=== PATIENT | female | born 2000 | race Caucasian/White ===

== ENCOUNTER 2020-02-20 18:05 | Emergency (ER) | payer OTHER ==
[2020-02-20] MEDS ORDERED: Sodium Chloride 0.9% 10 ML Syringe FLUSH PRN (18:21)
[2020-02-20] MEDS ORDERED: Sodium Chloride 0.9% 1,000 ML IV ONE ×2 (18:22→21:55)
[2020-02-20] MEDS ORDERED: Ondansetron 4 MG/2 ML SDV IVPUSH ONE ×2 (18:22→23:05)
--- NOTE | 2020-02-20 18:30 | EDM.PDOC ---
ED HPI GENERAL MEDICAL PROBLEM - General Chief Complaint: Respiratory Problem Stated Complaint: fever, nausea, sore throat Time Seen by Provider: 02/20/20 18:15 Source of Information: Reports: Patient - History of Present Illness INITIAL COMMENTS - FREE TEXT/NARRATIVE: Patient comes into the emergency department with complaints of nausea, vomiting, flank pain- with mild suprapubic, sore throat-since vomiting all day today, fever, body aches, and chills. Patient states her symptoms started approximately 5 to 7 days ago she was seen 4 days ago for COVID testing which came back negative. She states she has been progressively getting worse. Today she states she has felt her worse since the beginning of all of the symptoms. She states that she has been vomiting since midnight and cannot keep any fluid or solids down. Patient has notice difficulty urinating and decrease in urination but no hesitancy or burning. She also states that she goes from intermittent chills to hot flashes. She also states that her fever is been averaging 100-1 01. She has been taking Tylenol to help reduce the fever. She also has been taking Mucinex to help with little relief. She denies of any known active exposure to COVID-19. She States after taking Tylenol the fever is reduced for short period of time and her body aches to go away however they increase approximately 2 hours after taking any medication. Patient states she is in a stable relationship and has not possibility of at this time. Onset: Sudden Quality: Reports: Other Severity: Mild Improves with: Reports: None Worsens with: Reports: None Context: Reports: Other Associated Symptoms: Reports: No Other Symptoms Treatments PIGMENT PUMPER: Reports: Acetaminophen, Other (see below) (musinex) Throat Pain Score (Numeric/FACES): 3 - Related Data Allergies Allergy/AdvReac Type Severity Reaction Status Date / Time No Known Allergies Allergy Verified 02/20/20 18:12 Home Meds: Home Meds Albuterol Sulfate [Albuterol Sulfate Hfa] 8.5 gm IH ASDIRECTED PRN 02/20/20 [History] Ciprofloxacin [Ciprofloxacin HCl] 500 mg PO BID 6 Days #12 tab 02/20/20 [Rx] Past Medical History Respiratory History: Reports: Asthma Social & Family History - Tobacco Use Smoking Status *Q: Never Smoker ED ROS GENERAL - Review of Systems Review Of Systems: See Below Constitutional: Reports: Fever, Chills, Malaise, Fatigue, Decreased Appetite HEENT: Reports: Throat Pain Respiratory: Reports: Cough Cardiovascular: Reports: Dyspnea on Exertion Endocrine: Reports: No Symptoms GI/Abdominal: Reports: Nausea Musculoskeletal: Reports: No Symptoms Skin: Reports: No Symptoms Neurological: Reports: No Symptoms Psychiatric: Reports: No Symptoms Hematologic/Lymphatic: Reports: No Symptoms Immunologic: Reports: No Symptoms ED EXAM, GENERAL - Physical Exam Exam: See Below Exam Limited By: No Limitations General Appearance: Alert, WD/WN, No Apparent Distress Eye Exam: Bilateral Eye: EOMI, PERRL Ears: Normal External Exam, Normal Canal, Hearing Grossly Normal, Normal TMs Ear Exam: Bilateral Ear: Auricle Normal, Canal Normal, TM normal Nose: Normal Inspection, Normal Mucosa, No Blood Throat/Mouth: Normal Teeth, Normal Gums, Normal Voice. No: Inflammation (Erythema noted tonsil 3+ ) Head: Atraumatic, Normocephalic Neck: Normal Inspection, Supple, Non-Tender, Full Range of Motion Respiratory/Chest: No Respiratory Distress, Lungs Clear, Normal Breath Sounds, No Accessory Muscle Use, Chest Non-Tender Cardiovascular: Normal Peripheral Pulses, Regular Rate, Rhythm, No Edema GI/Abdominal: Normal Bowel Sounds, Soft, Non-Tender, No Organomegaly, No Distention, No Abnormal Bruit, No Mass Back Exam: Normal Inspection, Full Range of Motion Extremities: Normal Inspection, Normal Range of Motion, Non-Tender, No Pedal Edema, Normal Capillary Refill Neurological: Alert, Oriented, Normal Gait Psychiatric: Normal Affect, Normal Mood Skin Exam: Warm, Dry, Intact, Normal Color Course - Vital Signs Last Recorded V/S: Last Vital Signs Temp 37.2 C 02/20/20 23:03 Pulse 86 02/20/20 23:03 Resp 16 02/20/20 23:03 BP 138/75 02/20/20 23:03 Pulse Ox 97 02/20/20 23:03 - Orders/Labs/Meds Orders: Active Orders 24 hr Category Date Time Status Abdomen Pelvis wo Cont [CT] Stat Exams 02/20/20 19:54 Taken CULTURE BLOOD [BC] Stat Lab 02/20/20 18:54 Results CULTURE BLOOD [BC] Stat Lab 02/20/20 19:27 Received CULTURE STREP A CONFIRMATION [RM] Stat Lab 02/20/20 18:28 Results STREP SCRN A RAPID W CULT CONF [RM] Stat Lab 02/20/20 18:28 Results Ketorolac [Toradol] Med 02/20/20 23:05 Once 15 mg IVPUSH ONETIME ONE Ondansetron [Zofran] Med 02/20/20 23:05 Once 4 mg IVPUSH ONETIME ONE Sodium Chloride 0.9% [Saline Flush] Med 02/20/20 18:21 Active 10 ml FLUSH ASDIRECTED PRN Blood Culture x2 Reflex Set [OM.PC] Stat Oth 02/20/20 19:14 Ordered Peripheral IV Insertion Adult [OM.PC] Stat Oth 02/20/20 18:20 Ordered Medication Orders Sodium Chloride (Saline Flush) 10 ml FLUSH ASDIRECTED PRN PRN Reason: Keep Vein Open Last Admin: 02/20/20 19:16 Dose: 10 ml Documented by: WEI Labs: Laboratory Tests 02/20/20 02/20/20 02/20/20 Range/Units 18:28 18:54 18:54 WBC 22.4 H* (4.0-10.0) x10^3/uL RBC 4.67 (4.00-5.50) x10^6/uL Hgb 14.4 (12.0-16.0) g/dL Hct 40.7 (33.0-47.0) % MCV 87.2 (78.0-93.0) fL MCH 30.8 (26.0-32.0) pg MCHC 35.4 (32.0-36.0) g/dL RDW Coeff of Jaqui 11.7 (10.0-15.0) % Plt Count 228 (130-400) x10^3/uL Add Manual Diff Yes Neutrophils % (Manual) 85 H (50-80) % Band Neutrophils % 2 (0-6) % Lymphocytes % (Manual) 5 L (25-50) % Monocytes % (Manual) 8 (2-11) % Hypersegmented Neuts Occasional H Platelet Estimate Adequate Sodium 135 L (136-145) mmol/L Potassium 3.7 (3.5-5.1) mmol/L Chloride 99 (98-107) mmol/L Carbon Dioxide 24 (21-32) mmol/L Anion Gap 15.7 (10-20) mmol/L BUN 11 (7-18) mg/dL Creatinine 0.9 (0.55-1.02) mg/dL Est Cr Clr Drug Dosing TNP Estimated GFR (MDRD) > 60 Glucose 119 H (74-106) mg/dL Lactic Acid (0.4-2.0) mmol/L Calcium 9.0 (8.5-10.1) mg/dL Corrected Calcium 9.00 (8.5-10.1) mg/dL Total Bilirubin 0.9 (0.2-1.0) mg/dL AST 19 (15-37) U/L ALT 24 (14-59) U/L Alkaline Phosphatase 49 (46-116) U/L Total Protein 8.3 H (6.4-8.2) g/dL Albumin 4.0 (3.4-5.0) g/dL Globulin 4.3 Albumin/Globulin Ratio 0.93 Urine Color (YELLOW) Urine Appearance (CLEAR) Urine pH (5.0-8.0) Ur Specific [place] Urine Protein (NEGATIVE) mg/dL Urine Glucose (UA) (NEGATIVE) mg/dL Urine Ketones (NEGATIVE) mg/dL Urine Occult Blood (NEGATIVE) Urine Nitrite (NEGATIVE) Urine Bilirubin (NEGATIVE) Urine Urobilinogen (0.2) EU/dL Ur Leukocyte Esterase (NEGATIVE) Urine RBC (NOT SEEN) /HPF Urine WBC (NOT SEEN) /HPF Ur Squamous Epith Cells (NEGATIVE) /HPF Urine Bacteria (NEGATIVE) /HPF Urine Mucus (NEGATIVE) /LPF SARS CoV-2 RNA Rapid SUHAIL Negative (NEGATIVE) 02/20/20 02/20/20 02/20/20 Range/Units 18:54 20:41 21:24 WBC 21.7 H* (4.0-10.0) x10^3/uL RBC 4.66 (4.00-5.50) x10^6/uL Hgb 14.3 (12.0-16.0) g/dL Hct 41.1 (33.0-47.0) % MCV 88.2 (78.0-93.0) fL MCH 30.7 (26.0-32.0) pg MCHC 34.8 (32.0-36.0) g/dL RDW Coeff of Jaqui 11.9 (10.0-15.0) % Plt Count 222 (130-400) x10^3/uL Add Manual Diff Yes Neutrophils % (Manual) 85 H (50-80) % Band Neutrophils % 3 (0-6) % Lymphocytes % (Manual) 5 L (25-50) % Monocytes % (Manual) 7 (2-11) % Hypersegmented Neuts Occasional H Platelet Estimate Adequate Sodium (136-145) mmol/L Potassium (3.5-5.1) mmol/L Chloride (98-107) mmol/L Carbon Dioxide (21-32) mmol/L Anion Gap (10-20) mmol/L BUN (7-18) mg/dL Creatinine (0.55-1.02) mg/dL Est Cr Clr Drug Dosing Estimated GFR (MDRD) Glucose (74-106) mg/dL Lactic Acid 1.4 (0.4-2.0) mmol/L Calcium (8.5-10.1) mg/dL Corrected Calcium (8.5-10.1) mg/dL Total Bilirubin (0.2-1.0) mg/dL AST (15-37) U/L ALT (14-59) U/L Alkaline Phosphatase (46-116) U/L Total Protein (6.4-8.2) g/dL Albumin (3.4-5.0) g/dL Globulin Albumin/Globulin Ratio Urine Color Yellow (YELLOW) Urine Appearance Clear (CLEAR) Urine pH 7.0 (5.0-8.0) Ur Specific [place] 1.015 Urine Protein 30 H (NEGATIVE) mg/dL Urine Glucose (UA) Negative (NEGATIVE) mg/dL Urine Ketones 80 H (NEGATIVE) mg/dL Urine Occult Blood Negative (NEGATIVE) Urine Nitrite Negative (NEGATIVE) Urine Bilirubin Negative (NEGATIVE) Urine Urobilinogen 1.0 (0.2) EU/dL Ur Leukocyte Esterase Negative (NEGATIVE) Urine RBC 0-5 (NOT SEEN) /HPF Urine WBC Not seen (NOT SEEN) /HPF Ur Squamous Epith Cells Rare (NEGATIVE) /HPF Urine Bacteria Rare (NEGATIVE) /HPF Urine Mucus Occasional H (NEGATIVE) /LPF SARS CoV-2 RNA Rapid SUHAIL (NEGATIVE) Meds: Medications Generic Name Dose Route Start Last Admin Trade Name Freq PRN Reason Stop Dose Admin Sodium Chloride 10 ml 02/20/20 18:21 02/20/20 19:16 Saline Flush FLUSH 10 ml ASDIRECTED PRN Administration Keep Vein Open Discontinued Medications Generic Name Dose Route Start Last Admin Trade Name Freq PRN Reason Stop Dose Admin Ceftriaxone Sodium 1 gm 02/20/20 19:15 02/20/20 19:30 Rocephin IVPUSH 02/20/20 19:16 1 gm ONETIME ONE Administration Ciprofloxacin 1 packet 02/20/20 21:59 02/20/20 22:13 Take Home: Ciprofloxacin 500 Mg, 2 Tab Pack PO 02/20/20 22:00 1 packet ONETIME ONE Administration Sodium Chloride 1,000 mls @ 1,000 mls/hr 02/20/20 18:22 02/20/20 19:11 Normal Saline IV 02/20/20 19:21 1,000 mls/hr ONETIME ONE Administration Sodium Chloride 1,000 mls @ 1,000 mls/hr 02/20/20 21:55 02/20/20 22:00 Normal Saline IV 02/20/20 22:54 1,000 mls/hr ONETIME ONE Administration Ketorolac Tromethamine 15 mg 02/20/20 21:50 02/20/20 22:04 Toradol IVPUSH 02/20/20 21:51 15 mg ONETIME ONE Administration Ondansetron HCl 4 mg 02/20/20 18:22 02/20/20 19:12 Zofran IVPUSH 02/20/20 18:23 4 mg ONETIME ONE Administration Ondansetron HCl 2 packet 02/20/20 21:59 02/20/20 22:13 Take Home: Ondansetron Odt 4 Mg, 2 Tab Pack PO 02/20/20 22:00 2 packet ONETIME ONE Administration - Re-Assessments/Exams Free Text/Narrative Re-Assessment/Exam: 02/20/20 22:09 pt states she feels much better and is not willing to be admitted. She feels she would rest better at home. Discussed the risk and benefits. She will assume all risk and states she will return or call 911 if symptoms progress or return. Departure - Departure Time of Disposition: 23:20 Disposition: Home, Self-Care 01 Condition: Good Clinical Impression: Pyelonephritis - Discharge Information *PRESCRIPTION DRUG MONITORING PROGRAM REVIEWED*: Not Applicable *COPY OF PRESCRIPTION DRUG MONITORING REPORT IN PATIENT FELIPE: Not Applicable Prescriptions: Ciprofloxacin [Ciprofloxacin HCl] 500 mg PO BID 6 Days #12 tab Instructions: Ondansetron tablets, Ketorolac injection, Pyelonephritis, Adult, [id number], Ciprofloxacin tablets Referrals: PCP,Felixobtain [Primary Care Provider] - Forms: ED Department Discharge Additional Instructions: 1. rest 2. increase your water intake 3. Take all antibiotics as prescribed even if feeling better 4. Take a probiotic while on antibiotics to help promote healthy GI motility 5. Activity and diet as tolerated 6. Can use Ibuprofen and tylenol for any fever or discomfort 7. Follow up with your PCP or return if symptoms progress or worsen 8. Education provided to you regarding your illness, probiotics, antibiotic prescribed 9. Call with any questions or concerns Sepsis Event Note (ED) - Evaluation Sepsis Screening Result: No Definite Risk - Focused Exam Vital Signs: Vital Signs Temp Pulse Resp BP BP Pulse Ox 02/20/20 23:03 37.2 C 86 16 138/75 97 02/20/20 18:05 37.7 C 89 18 134/91 H 95 - My Orders Last 24 Hours: My Active Orders 02/20/20 18:20 Peripheral IV Insertion Adult [OM.PC] Stat 02/20/20 18:21 Sodium Chloride 0.9% [Saline Flush] 10 ml FLUSH ASDIRECTED PRN 02/20/20 18:28 CULTURE STREP A CONFIRMATION [RM] Stat STREP SCRN A RAPID W CULT CONF [RM] Stat 02/20/20 18:54 CULTURE BLOOD [BC] Stat 02/20/20 19:14 Blood Culture x2 Reflex Set [OM.PC] Stat 02/20/20 19:27 CULTURE BLOOD [BC] Stat 02/20/20 19:54 Abdomen Pelvis wo Cont [CT] Stat 02/20/20 23:05 Ketorolac [Toradol] 15 mg IVPUSH ONETIME ONE Ondansetron [Zofran] 4 mg IVPUSH ONETIME ONE - Assessment/Plan Last 24 Hours: My Active Orders 02/20/20 18:20 Peripheral IV Insertion Adult [OM.PC] Stat 02/20/20 18:21 Sodium Chloride 0.9% [Saline Flush] 10 ml FLUSH ASDIRECTED PRN 02/20/20 18:28 CULTURE STREP A CONFIRMATION [RM] Stat STREP SCRN A RAPID W CULT CONF [RM] Stat 02/20/20 18:54 CULTURE BLOOD [BC] Stat 02/20/20 19:14 Blood Culture x2 Reflex Set [OM.PC] Stat 02/20/20 19:27 CULTURE BLOOD [BC] Stat 02/20/20 19:54 Abdomen Pelvis wo Cont [CT] Stat 02/20/20 23:05 Ketorolac [Toradol] 15 mg IVPUSH ONETIME ONE Ondansetron [Zofran] 4 mg IVPUSH ONETIME ONE Assessment:: 1. pyelonephritis Plan: 1. Labs completed in the ER. Results reviewed with the patient 2. IV initiated in the emergency department 3. IV fluids provided 2 L NS given 4. [id number] , influenza- neg , strep- neg testing completed in the ER. 5. Zofran given in the ER to help with nausea 6. Elevated white count and negative covid-19, influenza, strep- initiated sepsis criteria 7. Rocephin 1gm IV given 8. Discussed with the patient admission would be appropriate. However patient is reluctant and refuses hospital admission. Will give a second liter of normal saline in the emergency departmentPatient will be given oral antibiotics to take at home as well as antinausea medication. Did have a lengthy discussion regarding the risks and benefits of discharge versus hospital admission. Patient will assume the risk of the discharge. Patient understands and will report back to the emergency department if symptoms progress or worsen or call 911. 9. Cipro take home pack provided as well as script to be filled at the pharmacy 10. Zofran take home pack sent home with the patient 11. Patient and nursing staff was updated regarding the plan of care 12. Education provided the patient regarding activity, diet, rest, [id number] medication modalities, and follow-up care was provided 13. Patient and family are agreeable to the above plan of care 14. All questions and concerns were addressed with the patient and family prior to discharge
[2020-02-20 19:13] LABS: CHLORIDE,CL 99 mmol/L (98-107); SODIUM,NA 135 mmol/L (136-145)
[2020-02-20 19:14] LABS: ANION GAP 15.7 mmol/L (10-20)
[2020-02-20] MEDS ORDERED: cefTRIAXone 1 GM Vial IVPUSH ONE (19:15)
--- NOTE | 2020-02-20 19:53 | CR ---
[id number] RAD/RAD Chest PA or AP 1V EXAM: RAD Chest PA or AP 1V INDICATION: SOB COMPARISON: None. DISCUSSION: Cardiomediastinal silhouette is normal in size and contour. No infiltrate, effusion, pneumothorax, or edema. IMPRESSION: Negative examination of the chest. Kenneth Melara MD 02/20/201951 Thank you for allowing us to participate in the care of your patient.
[2020-02-20] MEDS ORDERED: Ketorolac 15 MG/ML SDV IVPUSH ONE ×2 (21:50→23:05)
[2020-02-20] MEDS ORDERED: Take Home: Ciprofloxacin 500 MG Tab, 2 Tab Pack PO ONE (21:59)
[2020-02-20] MEDS ORDERED: Take Home: Ondansetron 4 MG Tab.DIS, 2 Tab Pack PO ONE (21:59)
--- NOTE | 2020-02-21 06:56 | CT ---
[id number] CT/CT Abdomen Pelvis WO IV EXAM: CT Abdomen Pelvis WO IV CLINICAL DATA: FLANK PAIN COMPARISON STUDY: None. FINDINGS: Lung bases are clear. Liver, spleen, gallbladder, pancreas, and adrenal glands are unremarkable. Punctate 1-2 mm nonobstructing left renal calculus. Kidneys and urinary collecting system are otherwise unremarkable. No bowel obstruction or inflammation. Appendix is normal. No lymphadenopathy. No fluid collections pneumoperitoneum. Trace free fluid the pelvis. Findings within normal physiologic limits for reproductive age female. No evidence of an adnexal lesion. Scattered changes of spondylosis the spine. No fracture or osseous lesion. IMPRESSION: 1-2 mm punctate nonobstructing left renal calculus. Otherwise, negative examination of the abdomen/pelvis. Kenneth Melara MD 02/21/20 [id number] Thank you for allowing us to participate in the care of your patient.
== END 2020-02-20 23:33 | disposition home or self-care (01) ==
LOC: VM.ED 18:05
DX: N12 Tubulo-interstitial nephritis, not specified as acute or chronic (principal); Z20.828 Contact with and (suspected) exposure to other viral communicable diseases; J45.909 Unspecified asthma, uncomplicated
CPT/HCPCS: 36415; 71045; 74176; 80053; 81001; 83605; 85025; 87040; 87081; 87635; 87804; 87880; 96361; 96374; 96375; 96376; 99284; A9270; J0696; J1885; J2405; J7030; U0002